=== PATIENT | male | born 1945 ===

== ENCOUNTER 2018-09-25 11:36 | Outpatient (CLI) | payer OTHER ==
[~2018-09-25] VITALS: Ht 170.2 cm; Wt 70.8 kg
== END 2018-09-25 11:50 | disposition home or self-care (01) ==
LOC: OFIC 805 11:36
DX: T16.1XXA Foreign body in right ear, initial encounter (principal); M79.5 Residual foreign body in soft tissue; T17.898A Other foreign object in other parts of respiratory tract causing other injury, initial encounter

== ENCOUNTER 2020-04-14 11:12 | Outpatient (CLI) | payer OTHER | END 2020-04-14 16:00 | disposition home or self-care (01) | LOC: OFIC 805 11:12 | DX: T16.1XXA Foreign body in right ear, initial encounter (principal); H92.01 Otalgia, right ear; H93.91 Unspecified disorder of right ear ==

== ENCOUNTER 2020-04-28 07:54 | Outpatient (CLI) | payer OTHER | END 2020-04-28 11:08 | disposition home or self-care (01) | LOC: OFIC 805 07:54 | PROVIDERS: ATTEND Otolaryngology | DX: H93.8X1 Other specified disorders of right ear (principal); H92.01 Otalgia, right ear; H69.91 Unspecified Eustachian tube disorder, right ear; T16.1XXA Foreign body in right ear, initial encounter; R59.9 Enlarged lymph nodes, unspecified ==

== ENCOUNTER 2020-04-28 11:29 | Outpatient (CLI) | payer OTHER | END 2020-04-28 11:36 | disposition home or self-care (01) | LOC: TOM 11:29 | PROVIDERS: ATTEND Otolaryngology | DX: K11.8 Other diseases of salivary glands (principal) ==